=== PATIENT | male | born 1955 | race Caucasian/White ===

== ENCOUNTER → 2016-07-12 | Outpatient (CLI) | payer OTHER ==
[~2016-07-12] MED LIST: HCTZ; LISINOPRIL10 MG PO; METFORMIN500 MG PO; NABUMETONE; PERCOCET 325 MG1 TAB PO; PRILOSEC 20MG20 MG PO; ZOFRAN4 MG PO
== END ==
LOC: COL.RAD 09:50
DX: M50.221 Other cervical disc displacement at C4-C5 level (principal); M51.26 Other intervertebral disc displacement, lumbar region; E10.9 Type 1 diabetes mellitus without complications; M96.1 Postlaminectomy syndrome, not elsewhere classified
CPT/HCPCS: A9585

== ENCOUNTER → 2021-01-07 | Outpatient (CLI) | payer OTHER | LOC: COL.RAD 12:50 | DX: M47.816 Spondylosis without myelopathy or radiculopathy, lumbar region (principal) ==